=== PATIENT | female | born 2000 | race Caucasian/White ===

== ENCOUNTER 2019-07-23 10:38 | Emergency (ER) | payer MEDICAID ==
[~2019-07-23] VITALS: Ht 165.1 cm; Wt 69.4 kg
[2019-07-23 10:40] VITALS: BP 128/79
== END 2019-07-23 12:23 | disposition home or self-care (01) ==
LOC: ED 12:15
DX: O26.893 Other specified pregnancy related conditions, third trimester (principal); J02.8 Acute pharyngitis due to other specified organisms; B97.89 Other viral agents as the cause of diseases classified elsewhere; Z3A.38 38 weeks gestation of pregnancy
CPT/HCPCS: 87081; 87880; 99283

== ENCOUNTER 2019-07-25 18:47 | Inpatient (IN) | payer MEDICAID ==
[~2019-07-25] VITALS: Ht 165.1 cm; Wt 69.5 kg
[2019-07-25 19:03] VITALS: BP 98/56
[2019-07-25] MEDS ORDERED: OXYTOCIN 30U/ 0.9% NaCL 500ML 500 ML IV PRN (20:35)
[2019-07-25] MEDS ORDERED: OXYTOCIN 30U/ 0.9% NaCL 500ML 500 ML IV ONE (20:35)
[2019-07-25] MEDS: D5%-LACTATED RINGERS 1,000 ML IV SCH (20:35)
[2019-07-25] MEDS ORDERED: ONDANSETRON 2MG/ML, 2ML IVPush PRN (21:00)
[2019-07-25] MEDS ORDERED: CALCIUM CARBONATE 500 MG TAB.CHEW PO PRN (21:00)
[2019-07-25] MEDS ORDERED: SODIUM CITRATE/CITRIC ACID 30 ML UDC PO PRN (21:00)
[2019-07-25] MEDS ORDERED: METOCLOPRAMIDE 5 MG/ML, 2ML IVPush PRN (21:00)
[2019-07-25] MEDS ORDERED: TERBUTALINE 1 MG/ML, 1ML SQ PRN (21:00)
[2019-07-25] MEDS ORDERED: TERBUTALINE 1 MG/ML, 1ML IVPush PRN (21:00)
[2019-07-25] MEDS ORDERED: NEWBORN KIT ONE (21:03)
[2019-07-25 21:37] LABS: BASOPHILS # (AUTO) 0.05 x10^3/uL (0-0.3); BASOPHILS % (AUTO) 0 % (0-1); EOSINOPHILS # (AUTO) 0.18 x10^3/uL (0-0.8); EOSINOPHILS % (AUTO) 2 % (1-7); LYMPHOCYTES # (AUTO) 1.36 x10^3/uL (1-6.1); LYMPHOCYTES % (AUTO) 13 % (22-44); MD NO; MEAN CORPUSCULAR HEMOGLOBIN 31.3 pg (27.0-34.8); MEAN CORPUSCULAR HGB CONC 33.5 g/dL (32.4-35.8); MEAN CORPUSCULAR VOLUME 93.2 fL (80-100); MEAN PLATELET VOLUME 9.7 fL (7.4-10.4); MONOCYTES # (AUTO) 0.19 x10^3/uL (0-1.4); MONOCYTES % (AUTO) 2 % (2-9); NEUTROPHILS # (AUTO) 8.53 x10^3/uL (1.8-8.0); NEUTROPHILS % (AUTO) 83 % (42-75); PLATELET COUNT 138 x10^3/uL (130-400); RED BLOOD COUNT 4.16 x10^6/uL (3.82-5.3); RED CELL DISTRIBUTION WIDTH 12.2 % (9.6-15.2)
[2019-07-25] MEDS ORDERED: OXYTOCIN 30U/ 0.9% NaCL 500ML 500 ML ONE (21:50)
[2019-07-25] MEDS ORDERED: MISOPROSTOL 25 MCG TABLET ONE (21:50)
[2019-07-25] MEDS: MISOPROSTOL 25 MCG TABLET VG PRN (22:00)
[2019-07-25] MEDS ORDERED: ZOLPIDEM 5MG TABLET ONE (23:11)
[2019-07-25] MEDS ORDERED: FAMOTIDINE 20 MG TABLET ONE (23:11)
[2019-07-25] MEDS: FAMOTIDINE 20 MG TABLET PO SCH (23:13)
[2019-07-25] MEDS: ZOLPIDEM 5MG TABLET PO PRN (23:13)
[2019-07-26] MEDS ORDERED: MISOPROSTOL 25 MCG TABLET ONE (01:58)
[2019-07-26] MEDS: MISOPROSTOL 25 MCG TABLET VG PRN (02:11)
[2019-07-26] MEDS ORDERED: FAMOTIDINE 20 MG TABLET ONE (11:13)
[2019-07-26] MEDS: FAMOTIDINE 20 MG TABLET PO SCH ×2 (11:15→21:00)
[2019-07-26] MEDS: D5%-LACTATED RINGERS 1,000 ML IV SCH ×2 (11:17→12:35)
[2019-07-26] MEDS: LACTATED RINGERS 1,000 ML IV SCH ×2 (11:19→20:35)
[2019-07-26] MEDS ORDERED: FENTANYL PF 100 MCG/2ML ONE (11:26)
[2019-07-26] MEDS: FENTANYL PF 100 MCG/2ML IVPush PRN (11:27)
[2019-07-26] MEDS ORDERED: OXYTOCIN 30U/ 0.9% NaCL 500ML 500 ML IV PRN (18:47)
[2019-07-27] MEDS ORDERED: FENTANYL PF 100 MCG/2ML ONE ×2 (01:07→02:13)
[2019-07-27] MEDS: FENTANYL PF 100 MCG/2ML IV PRN ×2 (01:10→11:46)
[2019-07-27] MEDS ORDERED: FENTANYL/BUPIV./NS/PF 250 ML EPIDCONT ONE ×2 (02:13→02:23)
[2019-07-27] MEDS: FENTANYL PF 100 MCG/2ML IVPush PRN (02:15)
[2019-07-27] MEDS: LACTATED RINGERS 1,000 ML IV SCH ×2 (02:17→10:32)
[2019-07-27] MEDS ORDERED: BUPIVACAINE 0.25% ONE ×2 (02:21→02:23)
[2019-07-27] MEDS ORDERED: FENTANYL/BUPIV./NS/PF 250 ML EPIDCONT SCH (03:01)
[2019-07-27] MEDS ORDERED: LACTATED RINGERS 1,000 ML IV SCH (03:01)
[2019-07-27] MEDS ORDERED: NALOXONE 0.4 MG/ML, 1ML IVPush PRN (03:30)
[2019-07-27] MEDS ORDERED: LACTATED RINGERS 1,000 ML IVBOLUS PRN (03:30)
[2019-07-27] MEDS ORDERED: EPHEDRINE 50 MG/ML, 1ML IVPush PRN (03:30)
[2019-07-27] MEDS ORDERED: LACTATED RINGERS 1,000 ML INTUTE SCH (04:30)
[2019-07-27] MEDS ORDERED: LACTATED RINGERS 1,000 ML INTUTE PRN (04:30)
[2019-07-27] MEDS ORDERED: SIMETHICONE 80 MG CHEW TAB PO PRN (07:30)
[2019-07-27] MEDS ORDERED: ACETAMINOPHEN 325 MG TABLET PO PRN (07:30)
[2019-07-27] MEDS ORDERED: OXYcodone/APAP 5/325MG TABLET PO PRN ×2 (07:30)
[2019-07-27] MEDS ORDERED: ONDANSETRON 2MG/ML, 2ML IV PRN (07:30)
[2019-07-27] MEDS ORDERED: OXYTOCIN 10 UNITS/ML, 1ML IM PRN (07:30)
[2019-07-27] MEDS ORDERED: MISOPROSTOL 200 MCG TABLET PR PRN (07:30)
[2019-07-27] MEDS ORDERED: IBUPROFEN 600 MG TABLET ONE (08:17)
[2019-07-27] MEDS: IBUPROFEN 600 MG TABLET PO PRN ×3 (08:18→20:52)
[2019-07-27] MEDS: FAMOTIDINE 20 MG TABLET PO SCH ×2 (09:00→21:00)
[2019-07-27] MEDS: OXYTOCIN 30U/ 0.9% NaCL 500ML 500 ML IV SCH ×2 (10:32→17:07)
[2019-07-27 11:00] VITALS: BP 111/71
[2019-07-27] MEDS: PRENATAL VIT/IRON/FA 1 EACH TABLET PO SCH (12:57)
[2019-07-27 14:58] LABS: MEAN CORPUSCULAR HEMOGLOBIN 31.3 pg (27.0-34.8); MEAN CORPUSCULAR HGB CONC 33.9 g/dL (32.4-35.8); MEAN CORPUSCULAR VOLUME 92.2 fL (80-100); MEAN PLATELET VOLUME 9.8 fL (7.4-10.4); PLATELET COUNT 131 x10^3/uL (130-400); RED BLOOD COUNT 4.26 x10^6/uL (3.82-5.3); RED CELL DISTRIBUTION WIDTH 12.3 % (9.6-15.2)
[2019-07-27 15:39] LABS: MD YES
[2019-07-27 15:41] LABS: BAND#(MANUAL) 1.61 x10^3/uL; BANDS%(MANUAL) 9 % (0-7); BASOS#(MANUAL) 0.18 x10^3/uL (0-0.3); BASOS% (MANUAL) 1 % (0-1); EOS#(MANUAL) 0.18 x10^3/uL (0.0-0.8); EOS% (MANUAL) 1 % (1-7); LYMPH#(MANUAL) 1.61 x10^3/uL (1-6.1); LYMPHS% (MANUAL) 9 % (22-44); MONOS% (MANUAL) 5 % (2-9); SEG#(MANUAL) 13.43 x10^3/uL (1.8-8); SEGS% (MANUAL) 75 % (42-75)
[2019-07-27 15:42] LABS: <PLATELET ESTIMATE> ADEQUATE; <PLT MORPHOLOGY> NORMAL PLT MORPH; <RBC MORPHOLOGY> NORMAL
[2019-07-27 16:05] VITALS: BP 113/70
[2019-07-27 20:15] VITALS: BP 117/82
[2019-07-27] MEDS: DOCUSATE 100 MG CAPSULE PO PRN (20:52)
[2019-07-28] VITALS: BP 105/71
[2019-07-28] MEDS ORDERED: ZOLPIDEM 5MG TABLET ONE (01:21)
[2019-07-28] MEDS: ZOLPIDEM 5MG TABLET PO PRN (01:23)
[2019-07-28] MEDS: OXYTOCIN 30U/ 0.9% NaCL 500ML 500 ML IV SCH ×3 (03:07→23:07)
[2019-07-28 04:55] VITALS: BP 114/62
[2019-07-28 07:50] VITALS: BP 117/75
[2019-07-28] MEDS: DOCUSATE 100 MG CAPSULE PO PRN (10:02)
[2019-07-28] MEDS: FAMOTIDINE 20 MG TABLET PO SCH ×2 (10:02→19:47)
[2019-07-28] MEDS: PRENATAL VIT/IRON/FA 1 EACH TABLET PO SCH (10:02)
[2019-07-28] MEDS: IBUPROFEN 600 MG TABLET PO PRN (19:47)
[2019-07-28 20:10] VITALS: BP 102/68
[2019-07-29] MEDS: PRENATAL VIT/IRON/FA 1 EACH TABLET PO SCH (07:41)
[2019-07-29] MEDS: IBUPROFEN 600 MG TABLET PO PRN (07:41)
[2019-07-29] MEDS: FAMOTIDINE 20 MG TABLET PO SCH (07:41)
[2019-07-29] MEDS: DOCUSATE 100 MG CAPSULE PO PRN (07:41)
[2019-07-29 07:45] VITALS: BP 110/73
[2019-07-29] MEDS: OXYTOCIN 30U/ 0.9% NaCL 500ML 500 ML IV SCH (09:07)
[2019-07-29] MEDS ORDERED: IBUP-1222 PO (17:28)
== END 2019-07-29 18:30 | disposition home or self-care (01) | DRG 807 ==
LOC: LDOP 18:47 → LDIP 20:40 → 2NW 07-27 09:22
PROVIDERS: ADMIT Obstetrics & Gynecology; ATTEND Obstetrics & Gynecology
PROC: 10E0XZZ Delivery of Products of Conception, External Approach (ICD-10-PCS; principal; 2019-07-27)
PROC: 10H07YZ Insertion of Other Device into Products of Conception, Via Natural or Artificial Opening (ICD-10-PCS; 2019-07-27)
PROC: 3E0R3BZ Introduction of Anesthetic Agent into Spinal Canal, Percutaneous Approach (ICD-10-PCS; 2019-07-27)
PROC: 3E0R3BZ Introduction of Anesthetic Agent into Spinal Canal, Percutaneous Approach (ICD-10-PCS; 2019-07-27)
DX: O76 Abnormality in fetal heart rate and rhythm complicating labor and delivery (principal); Z37.0 Single live birth; Z3A.38 38 weeks gestation of pregnancy
CPT/HCPCS: 36415; J7121; 85025; 86592; 86850; 86900; G0378; J3010; J3490; J2590; J7120